=== PATIENT | male | born 1950 | race Caucasian/White ===

== ENCOUNTER 2021-08-22 05:25 | Day surgery (SDC) | payer MEDICARE ==
[2021-08-17 12:59] LABS: PRE OP PROTIME 10.8 SECONDS (9.0-12.0)
[2021-08-17 13:03] LABS: BASOPHILS % (AUTO) 0.5 % (0-1); EOSINOPHILS # (AUTO) 0.1 X10'3 (0-0.9); EOSINOPHILS % (AUTO) 2.4 % (0-6); LYMPHOCYTES # (AUTO) 1.5 X10'3 (1.1-4.8); LYMPHOCYTES % (AUTO) 28.8 % (21-51); MEAN CORPUSCULAR HEMOGLOBIN 31.3 PG (27.0-31.0); MEAN CORPUSCULAR HGB CONC 33.5 g/dL (33.0-36.5); MEAN CORPUSCULAR VOLUME 93.7 FL (78-98); MEAN PLATELET VOLUME 7.2 FL (7.4-10.4); MONOCYTES # (AUTO) 0.7 X10'3 (0-0.9); MONOCYTES % (AUTO) 13.6 % (2-12); NEUTROPHILS # (AUTO) 2.8 X10'3 (1.8-7.7); NEUTROPHILS % (AUTO) 54.7 % (42-75); PRE OP HEMATOCRIT 44.9 % (42.0-52.0); PRE OP PLATELET COUNT 318 X10'3 (140-440); RED BLOOD COUNT 4.79 X10'6 (4.70-6.10); RED CELL DISTRIBUTION WIDTH 13.5 % (11.5-14.5)
[~2021-08-22] VITALS: Ht 177.8 cm; Wt 74.2 kg
[2021-08-22] VITALS (24 sets, daily range): BP systolic 81–145; BP diastolic 58–104
[~2021-08-22 05:25] MED LIST: ACET-1025 PO; FENT1PAT7 TOP; IBUP-24 PO; ringers solution, lacted 1,000 ML IV SCH
[2021-08-22] MEDS ORDERED: metoclopramide 5 mg/ml inj IV ONE (05:30)
[2021-08-22] MEDS ORDERED: famotidine 20mg tablet PO ONE (05:30)
[2021-08-22] MEDS ORDERED: oxyCODONE SR 10mg (sust. release) tab -2 tabs (20mg) PO ONE (05:30)
[2021-08-22] MEDS ORDERED: acetaminophen 325mg tablet PO ONE (05:30)
[2021-08-22] MEDS ORDERED: celeCOXIB 100mg capsule PO ONE (05:30)
[2021-08-22] MEDS ORDERED: gabapentin 300mg capsule PO ONE (05:30)
[2021-08-22] MEDS ORDERED: cefazolin/dext.iso 2gm/50ml IV ONE (05:30)
[2021-08-22] MEDS ORDERED: tranexamic acid inj. 1,000 MG in 0.7% saline 100 ML PMX IV ONE ×2 (06:00→09:15)
[2021-08-22] MEDS ORDERED: LIDOcaine 1% (10mg/ml) 2ml vial ONE (06:07)
[2021-08-22] MEDS ORDERED: ondansetron/PF 4mg/2ml inj IV PRN ×2 (06:10→08:00)
[2021-08-22] MEDS ORDERED: HYDROmorphone 1 mg/ml syringe IV PRN (06:10)
[2021-08-22] MEDS ORDERED: magnesium hydroxide 30ml (MOM) UD suspension PO PRN (06:10)
[2021-08-22] MEDS ORDERED: diphenhydrAMINE 25mg capsule PO PRN ×2 (06:10)
[2021-08-22] MEDS ORDERED: oxyCODONE/APAP 10/325mg tablet PO PRN (06:10)
[2021-08-22] MEDS ORDERED: bisacodyl 10mg suppository rectal RC PRN (06:10)
[2021-08-22] MEDS ORDERED: acetaminophen 325mg tablet PO PRN (06:10)
[2021-08-22] MEDS: potassium cl 20mEq in 1/2 NS 1,000 ML IV SCH ×3 (06:10→22:10)
[2021-08-22] MEDS ORDERED: ketorolac trometh. 30mg/ml inj. ONE (06:37)
[2021-08-22] MEDS ORDERED: cloNIDine hcl/PF 100mcg/ml inj ONE (06:38)
[2021-08-22] MEDS ORDERED: vancomycin 1,000mg inj ONE (06:38)
[2021-08-22] MEDS ORDERED: ROPIVAcaine 0.5% (5mg/ml) 30ml vial ONE ×3 (06:38→07:31)
[2021-08-22] MEDS ORDERED: epiNEPHrine 1 mg/ml inj ONE (06:38)
[2021-08-22 06:57] LABS: ALBUMIN 3.8 G/DL (3.4-5.0); ALBUMIN/GLOBULIN RATIO 1.1 (1.1-1.5); ALKALINE PHOSPHATASE 53 IU/L (46-116); BLOOD UREA NITROGEN 27 MG/DL (7-18); BUN/CREATININE RATIO 44.3 (5.4-32.0); CALCIUM 9.1 MG/DL (8.5-10.1); CHLORIDE 103 MMOL/L (99-107); CREATININE 0.61 MG/DL (0.60-1.10); PRE OP ALT 34 U/L (30-65); PRE OP ANION GAP 8 (8-16); PRE OP AST 21 U/L (10-37); PRE OP BILIRUB, TOTAL 0.6 MG/DL (0.0-1.0); PRE OP GLUCOSE 98 MG/DL (70-104); PRE OP SODIUM 139 MMOL/L (135-145); TOTAL PROTEIN 7.2 G/DL (6.4-8.2); eGFR > 90 ML/MIN
[2021-08-22 07:02] LABS: PRE OP POTASSIUM 3.3 MMOL/L (3.4-5.1)
[2021-08-22] MEDS ORDERED: MIDAZolam 1mg/ml 10ml vial ONE (07:16)
[2021-08-22] MEDS ORDERED: fentaNYL/PF 50MCG/1 ML 2ML syringe ONE (07:17)
[2021-08-22] MEDS ORDERED: ROPIVAcaine 0.2% (10 MG/5 ML) BOLUS INJECTION ADDCANAL PRN (08:00)
[2021-08-22] MEDS: gabapentin 300mg capsule PO SCH ×3 (08:00→19:53)
[2021-08-22] MEDS ORDERED: ringers solution, lacted 1,000 ML IV SCH (08:00)
[2021-08-22] MEDS ORDERED: proCHLORperazine 10 MG/2 ml inj IV PRN (08:00)
[2021-08-22] MEDS ORDERED: meperidine/PF 25mg/ml syringe IV PRN ×2 (08:00)
[2021-08-22] MEDS: ascorbic acid 500mg tablet PO SCH ×2 (08:00→19:52)
[2021-08-22] MEDS ORDERED: morphine 2 MG/ML inj. syringe IV PRN (08:00)
[2021-08-22] MEDS: aspirin 325mg tablet PO SCH (08:30)
[2021-08-22] MEDS ORDERED: dexamethasone sod phosphate 4mg/ml inj. ONE (09:04)
--- NOTE | 2021-08-22 09:10 | NUR ---
Received from OR via BED, accompanied by Anesthesiologist and report given by Anesthesiologist. PATIENT WAKING UP, NO S/S OF PAIN, V/S WNL, SCD ON, 18G TO LUE, TROY drsg to RIGHT KNEE CDI with ON Q BALL AT 2ML/HR.
[2021-08-22] MEDS: ROPIVAcaine 0.2%/PF PUMP/bolus 545 ML ADDCANAL SCH (09:40)
[2021-08-22] MEDS ORDERED: fentaNYL 25MCG/hour patch.TD72 TD SCH (10:00)
[2021-08-22] MEDS: meperidine/PF 25mg/ml syringe IV PRN ×2 (10:54→11:02)
[2021-08-22] MEDS: morphine 4 MG/ML inj SYRINge IV PRN ×2 (11:27→14:53)
[2021-08-22] MEDS ORDERED: tranexamic acid 1gm/0.7% sal. 100 ML IV ONE (12:00)
[2021-08-22] MEDS ORDERED: acetaminophen 1,000mg/100ml IV 100 ML IV ONE (12:05)
[2021-08-22] MEDS: oxyCODONE/APAP 10/325mg tablet PO PRN ×2 (12:19→19:54)
--- NOTE | 2021-08-22 13:00 | NUR ---
PATIENT A&OX4, STATES PAIN CONTROLLED, V/S WNL, SCD ON, 18G TO LUE, TROY drsg to RIGHT KNEE CDI with ON Q BALL AT 8ML/HR. PATIENT TAKEN TO ROOM WITH ALL BELONGINGS AND HOOKED UP TO MONITORS IN ROOM AND GIVEN CALL LIGHT, REPORT GIVEN TO RN WHO HAS TAKEN OVER PATIENT CARE.
--- NOTE | 2021-08-22 13:04 | NUR ---
PT paged to be made aware of d/c pending PT eval and treat
--- NOTE | 2021-08-22 13:15 | NUR ---
pt arrived to unit with iv, iv pump with fluids infusing, dressing d/i, ice pack in knee wrap. no acute changes from OR/pacu assessment
[2021-08-22] MEDS: ceFAZolin/D5W- 1GM premix 50 ML IV SCH (15:41)
[2021-08-22] MEDS ORDERED: vancomycin/NS 1 GM ADD-VANTAGE 250 ML IV SCH (20:00)
[2021-08-22] MEDS ORDERED: sennosides 8.6mg tablet PO SCH (21:00)
[2021-08-23] VITALS: BP 141/88
[2021-08-23] MEDS: HYDROmorphone inj. 0.5 MG/0.5 ML DISP.SYRIN IV PRN ×2 (03:37→08:38)
[2021-08-23] MEDS: ceFAZolin/D5W- 1GM premix 50 ML IV SCH (03:38)
[2021-08-23] MEDS: potassium cl 20mEq in 1/2 NS 1,000 ML IV SCH (03:47)
[2021-08-23] MEDS: oxyCODONE/APAP 10/325mg tablet PO PRN ×2 (06:19→10:44)
[2021-08-23 06:53] LABS: BASOPHILS % (AUTO) 0.1 % (0-1); EOSINOPHILS # (AUTO) 0.1 X10'3 (0-0.9); EOSINOPHILS % (AUTO) 0.7 % (0-6); HEMATOCRIT 35.3 % (42.0-52.0); HEMOGLOBIN 12.1 g/dl (14.0-17.9); LYMPHOCYTES # (AUTO) 1.3 X10'3 (1.1-4.8); MEAN CORPUSCULAR HEMOGLOBIN 32.2 PG (27.0-31.0); MEAN CORPUSCULAR HGB CONC 34.4 g/dL (33.0-36.5); MEAN CORPUSCULAR VOLUME 93.6 FL (78-98); MEAN PLATELET VOLUME 7.1 FL (7.4-10.4); MONOCYTES # (AUTO) 1.5 X10'3 (0-0.9); MONOCYTES % (AUTO) 12.7 % (2-12); NEUTROPHILS # (AUTO) 9.1 X10'3 (1.8-7.7); NEUTROPHILS % (AUTO) 75.5 % (42-75); PLATELET COUNT 248 X10'3 (140-440); RED BLOOD COUNT 3.77 X10'6 (4.70-6.10); RED CELL DISTRIBUTION WIDTH 13.3 % (11.5-14.5); WHITE BLOOD COUNT 12.1 X10'3 (4.5-11.0)
[2021-08-23 07:59] LABS: ANION GAP 6 (8-16); CHLORIDE 108 MMOL/L (99-107); POTASSIUM 3.9 MMOL/L (3.5-5.1); SODIUM 143 MMOL/L (135-145)
[2021-08-23 08:00] VITALS: BP 140/82
[2021-08-23] MEDS ORDERED: multivitamins, therapeutics tablet PO SCH (08:00)
[2021-08-23] MEDS: ascorbic acid 500mg tablet PO SCH (08:38)
[2021-08-23] MEDS: aspirin 325mg tablet PO SCH (08:38)
[2021-08-23] MEDS: gabapentin 300mg capsule PO SCH (08:38)
[2021-08-23] MEDS: ROPIVAcaine 0.2%/PF PUMP/bolus 545 ML ADDCANAL SCH (10:44)
[2021-08-23] MEDS ORDERED: celeCOXIB 100mg capsule PO SCH (20:00)
== END 2021-08-23 12:02 | disposition home or self-care (01) ==
LOC: PAS 05:25 → EDSTATUS 07:30 → SUR 3N 13:51 → PAS 08-23 12:02
PROVIDERS: ATTEND Orthopaedic Surgery
DX: M17.11 Unilateral primary osteoarthritis, right knee (principal); G47.30 Sleep apnea, unspecified; G89.18 Other acute postprocedural pain; G89.29 Other chronic pain; Z79.899 Other long term (current) drug therapy; Z20.822 Contact with and (suspected) exposure to COVID-19; Z79.01 Long term (current) use of anticoagulants
CPT/HCPCS: 27447; 36415; 64448; 64999; 73560; 76942; 80051; 80053; 82948; 85025; 85610; 85730; 86885; 86900; 86901; 87081; 97110; 97161; 97530; C1776; J0131; J0171; J0690; J0735; J1100; J1170; J1885; J2175; J2250; J2270; J2765; J2795; J3010; J3370; J3480; J3490; J7030; J7120; Q0163; U0003; U0005; Z7506; Z7508; Z7512; A4215; A6449; A7000; A9272; G0378

== ENCOUNTER 2024-11-11 09:38 | Outpatient (CLI) | payer MEDICARE ==
[~2024-11-11 09:38] MED LIST changes: -FENT1PAT7 TOP; -ringers solution, lacted 1,000 ML IV SCH
== END 2024-11-11 23:59 | disposition home or self-care (01) ==
LOC: MRI02 09:38
PROVIDERS: ATTEND Family Medicine
DX: M51.17 Intervertebral disc disorders with radiculopathy, lumbosacral region (principal); M47.27 Other spondylosis with radiculopathy, lumbosacral region; M47.815 Spondylosis without myelopathy or radiculopathy, thoracolumbar region; M48.07 Spinal stenosis, lumbosacral region
CPT/HCPCS: 72148